=== PATIENT | female | born 1960 | race Caucasian/White ===

== ENCOUNTER 2022-11-04 14:48 | Outpatient (CLI) | payer OTHER, SELFPAY ==
[2022-11-04 22:43] LABS: Strep A DNA Probe* NOT DETECTED (Not Detectd)
== END 2022-11-04 14:49 | disposition home or self-care (01) ==
PROVIDERS: PCP Nurse Practitioner Family; Visit Provider Nurse Practitioner Family
DX: J02.9 Acute pharyngitis, unspecified (principal); J11.1 Influenza due to unidentified influenza virus with other respiratory manifestations
CPT/HCPCS: 85025; 87086; 87426; 87635; 87651

== ENCOUNTER 2023-08-22 10:56 | Outpatient (CLI) | payer OTHER, SELFPAY ==
--- OUTSIDE RECORDS SUMMARY | 2023-08-22 11:01 | XMS_ITS | Continuity of Care Document ---
Author Organization [facility] Address [address], [place] [address] Phone Care Team Providers Care Machine Setter Name Role Phone Otoniel Prasad ODe Unavailable Unavailable Advance Directives Directive Yes / No Effective Date File Name No Information Encounters Encounter Description Practice Location Reason(s) For Visit Diagnoses Date Provider Providers Copied on Encounter [facility], [address] [place] [address], [id number], [place] tel:[phone] [place] [address] No Information Osmar Marshall. [address] [place] [address], [id number], [place]. tel:[phone] Family History Family Member Type Diagnosis Age At Onset No Information Payers Payer name Insurance type Covered alliance party ID Authoriza tion(s) No Information Social History Type Description Quantity Date Captured Comments Sex Female Smoking Status No Information Chief Complaint And Reason For Visit No Information Reason For Referral Reason For Referral No Information History Of Present Illness Encounter Date Complaint History Of Prese nt Illness No Information Functional Status Date Functional Assessmen t No Information Instructions Date Instruction Additional Infor mation No Information Assessments Type Assessment Date No Information Patient Care Teams Name Effective Dates (start - stop) Status Members No Information
--- OUTSIDE RECORDS SUMMARY | 2023-08-22 11:01 | XMS_ITS | Clinical Summary ---
Author Organization [facility] Address [place], [place] [address] Care Team Providers Care Flight Control Tower Operator Name Role Phone Amy Watters NP Primary Care Provider [phone] Allergies Active Allergy Reactions Criticality Noted Date Comments Codeine Nausea Only 12/19/2015 Medications Medication Sig Dispensed Refills Start Date End Date Status ibuprofen (ADVIL; MOTRIN) 200 mg tablet Take 400 mg by mouth every 6 hours if needed for Pain. Active MULTIVITAMIN ORAL Take 1 tablet by mouth once daily. Active VIT C/VIT E/LUTEIN/MIN/OMEGA-3 (OCUVITE ORAL) Take 1 tablet by mouth once daily. (takes Herbalife product for eyes) Active CELLULOSE ORAL Take 1 capsule by mouth once daily. (takes Herbalife product) Active DOCOSAHEXANOIC ACID/EPA (FISH OIL ORAL) Take 1 capsule by mouth once daily. (takes Herbalife product) Active KRILL OIL ORAL Take 1 capsule by mouth once daily. (Herbalife product) Active Patients Unique Medication From Home Herbalife Joint Supplement Take 1 tablet by mouth daily or as directed. Active Patients Unique Medication From Home Herbalife Immunogen Take 1 tablet by mouth daily. Active Patients Unique Medication From Home Herbalife Cell Activator Take 1 tablet by mouth daily or as directed. Active Active Problems Problem Noted Date Diagnosed Date Dehydration 01/18/2015 Viral syndrome 01/17/2015 Pre-syncope 01/17/2015 Immunizations Name Administration Dates Next Due Hepatitis B (Adult) 07/26/1998,04/24/1998,1998 Td (Age >=7 Years) 07/25/2002 Family History Medical History Relation Name Comments Heart Disease Father pacer due to h eart problems from lymes Stroke Maternal Grandfather Aneurys m Hypertension Maternal Grandmother Cancer-breast Mother age 61 Cancer-colon Mother age 53 Heart Disease Mother [place] Hyperlipidemia Mother Hypertension Mother Relation Name Status Comments Father Maternal Grandfather Maternal Grandmother Mother Social History Tobacco Use Types Packs/Day Years Used Date Smoking Tobacco: Never Tobacco Cessation:Counseling Given: Yes Alcohol Use Standard Drinks/Week Comments No 0 (1 standard drink = 0.6 oz pur e alcohol) Sex and Gender Information Value Date Recorded Sex Assigned at Not on file Gender Identity Not on file Sexual Orientation Not on file Obstetrics History Last Filed Vital Signs Vital Sign Reading Time Taken Comments Blood Pressure 106/56 12/20/2015 7:51 PM CDT Pulse 98 12/20/2015 7:51 PM CDT Temperature 36.3 ??C (97.4 ??F) 12/20/2015 7:51 PM CD T Respiratory Rate 18 01/18/2015 7:51 AM MOUNTER AUTOMATIC Oxygen Saturation 100% 12/20/2015 7:51 PM CDT Inhaled Oxygen Concentration - - Weight 71.7 kg (158 lb) 12/20/2015 7:51 PM CDT Height 167.6 cm (5' 6) 01/17/2015 2:10 AM MOUNTER AUTOMATIC Body Mass Index 25.5 01/17/2015 2:10 AM MOUNTER AUTOMATIC Plan of Treatment Health Maintenance Due Date Last Done Comments Tdap 1970 Depression screening for age 12+ 1971 HIV for age 15-65 1974 BMI (ht and wt on same day) for age 18+ 1977 Hepatitis C screening for ag e 18-79 1977 Colonoscopy through age 75 02/09/2004 Lipids for age 45-75 02/09/2004 Zoster (shingles) series for age 50+ (1 of 2) 2009 Mammogram for age 45-75 06/28/2009 06/28/2008 Pap test for age 21-65 06/29/2011 9, 10/11/2003, 10/03/2003 Tetanus booster 07/25/2012 07/25/2002 COVID-19 vaccine series (2022-24 season) 2022 Influenza for age 50-64 10/26/2023 Pneumococcal series for age 6-64 Aged Out No longer eligible b ased on patient's age to complete this topic Procedures Procedure Name Priority Date/Time Associated Diagnosis Comments XR MAMMO SCREENING BILATERAL (IA) Routine 06/28/2008 7:28 PM CDT Other Screening Mammogram SENIOR MANUFACTURING ENGINEER THIN PREP PAP SCREEN IMAGED Routine 06/28/2008 3:20 PM CDT Screening for Malignant Neoplasm of the Cervix from Last 3 Months or Most Recently Relevant to Health Maintenance Results * XR MAMMO SCREENING BILATERAL * (06/28/2008 7:28 PM CDT) MAMMOGRAM ACR 1 Negative Anatomical Region Laterality Modality BREASTS, Breast Left, Breast Right Bilateral Mammography 06/28/2008 7:28 PM CDT Narrative 07/01/2008 10:01 AM CDT Negative mammogram. ??For complete description of the mammographic examination, please reference scanned document within Foneshow. ?? We are mailing a results letter to the patient. ACR 1 Negative Procedure Note Jaylen Sullivan, - 07/01/2008 Negative mammogram. For complete description of the mammographicexamination, please reference scanned document within Foneshow. We are mailing a results letter to the patient. ACR 1 Negative Amy Villasenorue INTERIOR DESIGN DIRECTOR MAMMO * SENIOR MANUFACTURING ENGINEER THIN PREP PAP SCREEN IMAGED (06/28/2008 3:20 PM CDT) CYTOLOGY ??CYTOPATHOLOGY REPORT ??[facility] ?? Status: Final Report ? [id number] ?? CLINICAL INFORMATION ?Date of Last LMP ?: April 2008 ?Last Pap Date ? : 10-11-03 ?Last Pap Result ? : NIL ?ABN Arona/Bx Past 5 YRS: None ?Hormone Usage ? : BCP/OCP/Patch/Ring ?Menstrual Status ?: Regular Periods ?Arona/Bx done today ?: No ?Additional Data ? : None given ?? HPV Request ?: HPV if ASCUS ?? SPECIMEN SOURCE ?: Cervical/vaginal ThinPrep Vial, screening ?? SPECIMEN ADEQUACY ?: Satisfactory for evaluation Endocervical ?component present. ? INTERPRETATION/RES ULT: ?Negative for intraepithelial lesion or malignancy (NIL) ? Cytology 1st Screener : ??djs ?? Signed by: ? djs ?? This specimen was screened by the FDA approved ThinPrep Imaging ?? System and manually reviewed. ?? NOTE: The Pap test is a screening technique, not a diagnostic ?? procedure. It is used primarily to screen for squamous cancers and ?? precursor lesions. Published studies have shown that it is subject to ?? both false negative and false positive results. The pap test should ?? not be used as the sole means to diagnose or exclude pre-malignant and ?? malignant lesions. ?? COLLECTED: 06/28/08 ?? ACCESSIONED: 06/28/08 ?? SIGNED: 07/04/08 [facility] PAP [place] CODE NIL [facility] Cervical/Vaginal (Cervical/Vagina l) 06/28/2008 3:20 PM CDT 06/28/2008 3:17 PM CDT Amy Watters NP PATHOLOGY/CYTOLOGY [facility] [place]NAL ZIP [id number] [address] from Last 3 Months or Most Recently Relevant to Health Maintenance Advance Directives Documents on File Type Date Recorded Patient Logging Supervisor Expl anation Healthcare Directive 07/01/2018 12:00 AM 07/01/18 * Full Code (Latest Code Status on File) Date Activated Date Inactivated Comments 01/17/2015 2:00 AM 01/18/2015 11:36 AM Question Answer Comments Code Status Discussion: Discussed Care Teams Flight Control Tower Operator Relationship Specialty Start Date End Date Amy Watters NP PCP - General Family Practice 06/11/13
== END 2023-08-22 10:57 | disposition home or self-care (01) ==
PROVIDERS: PCP Nurse Practitioner Family; Visit Provider Nurse Practitioner Family
DX: Z00.00 Encounter for general adult medical examination without abnormal findings (principal); R10.9 Unspecified abdominal pain; Z13.6 Encounter for screening for cardiovascular disorders; Z13.1 Encounter for screening for diabetes mellitus
CPT/HCPCS: 80053; 80061; 85025

== ENCOUNTER 2023-08-26 16:32 | Outpatient (CLI) | payer OTHER, SELFPAY ==
--- OUTSIDE RECORDS SUMMARY | 2023-08-26 16:35 | XMS_ITS | Clinical Summary ---
Author Organization [facility] Address [place], [place] [address] Care Team Providers Care Pigment Weigher Name Role Phone Amy Watters NP Primary Care Provider [phone] Allergies Active Allergy Reactions Criticality Noted Date [...] Dehydration 01/18/2015 Viral syndrome 01/17/2015 Pre-syncope 01/17/2015 Encounters Date Type Department Care Team Description 08/22/2023 Lab Requisition [facility] [phone] Suha Sosa DIRECTOR EXPERIMENTAL MEDICINE from Last 3 Months Immunizations Name Administration Dates Next Due Hepatitis B (Adult) 07/26/1998,04/24/1998,1998 Td (Age >=7 Years) 07/25/2002 Family History Medical History Relation Name Comments Heart Disease Father pacer due to h eart problems from lymes Stroke Maternal Grandfather Aneurys m Hypertension Maternal Grandmother Cancer-breast Mother age 61 Cancer-colon Mother age 53 Heart Disease Mother [place] Hyperlipidemia Mother Hypertension Mother Relation Name Status [...] T Respiratory Rate 18 01/18/2015 7:51 AM MINERALOGY PROFESSOR Oxygen Saturation 100% 12/20/2015 7:51 PM CDT Inhaled Oxygen Concentration - - Weight 71.7 kg (158 lb) 12/20/2015 7:51 PM CDT Height 167.6 cm (5' 6) 01/17/2015 2:10 AM MINERALOGY PROFESSOR Body Mass Index 25.5 01/17/2015 2:10 AM MINERALOGY PROFESSOR Plan of Treatment Health Maintenance Due Date Last Done Comments Tdap 1970 Depression screening for age 12+ 1971 HIV for age 15-65 1974 BMI (ht and wt on same day) for age 18+ 1977 Hepatitis C screening for age 18-79 1977 Colonoscopy through age 75 02/09/2004 Lipids for age 45-75 02/09/2004 Zoster (shingles) series for age 50+ (1 of 2) 2009 Mammogram for age 45-75 06/28/2009 06/28/2008 Pap test for age 21-65 06/29/2011 4, 06/28/2008, 10/11/2003, Additional history exists Tetanus booster 07/25/2012 07/25/2002 COVID-19 vaccine series (2022-24 season) 2022 Influenza for age 50-64 10/26/2023 Pneumococcal series for age 6-64 Aged Out No longer eligible based on patient's age to complete this topic Procedures Procedure Name Priority Date/Time Associated Diagnosis Comments LAB TRACKING EVENT Routine 08/22/2023 11 :15 AM CDT HPV THIN PREP Routine 08/22/2023 11:15 AM CDT XR MAMMO SCREENING BILATERAL (IA) Routine 06/28/2008 7:28 PM CDT Other Screening Mammogram from Last 3 Months or Most Recently Relevant to Health Maintenance Results * LAB TRACKING EVENT (08/22/2023 11:15 AM CDT) Other (Other) Client Collect / Unknown 08/22/2023 11:15 AM CDT 08/22/2023 10:04 PM CDT Suha Sosa NP LAB BILL ONLY Performing Organization Address [facility] Co de Phone Number [facility] [address] * HPV HIGH RISK (08/22/2023 11:15 AM CDT) TYPE 16 Negative Negative 08/26/2023 2:27 PM CDT [facility] TYPE 18 Negative Negative 08/26/2023 2:27 PM CDT [facility] OTHER HIGH RISK TYPES Negative Negative 08/26/2023 2:27 PM CDT [facility] Other (Cervical) 08/22/2023 11:15 AM CDT 08/25/2023 2:45 PM CDT Narrative [facility] - 08/26/2023 2:27 PM CDT HPV types 16, 18, 31, 33, 35, 39, 45, 51, 52, 56, 58, 59, 66 and 68 DNA were undetectable or below the pre-set threshold. Methodology: Shadow Puppet Gerber 4800 HPV Test Suha Sosa NP MICROBIOLOGY Performing Organization Address [facility] Co de Phone Number [facility] [address] [place] [address], * XR MAMMO SCREENING BILATERAL * (06/28/2008 7:28 PM CDT) MAMMOGRAM ACR 1 Negative Anatomical Region Laterality Modality BREASTS, Breast Left, Breast Right Bilateral Mammography 06/28/2008 7:28 PM CDT Narrative 07/01/2008 10:01 AM CDT Negative mammogram. ??For complete description of the mammographic examination, please reference scanned document within [employer]ze. ?? We are mailing a results letter to the patient. ACR 1 Negative Procedure Note Jaylen Sullivan, - 07/01/2008 Negative mammogram. For complete description of the mammographicexamination, please reference scanned document within Graze. We are mailing a results letter to the patient. ACR 1 Negative Amyanton Villasenorue DIRECTOR EXPERIMENTAL MEDICINE MAMMO from Last 3 Months or Most Recently Relevant to Health Maintenance Advance Directives Documents on File Type Date Recorded Patient Bid Analyst Expl anation Healthcare Directive 07/01/2018 12:00 AM 07/01/18 * Full Code (Latest Code Status on File) Date Activated Date Inactivated Comments 01/17/2015 2:00 AM 01/18/2015 11:36 AM Question Answer Comments Code Status Discussion: Discussed Care Teams Pigment Weigher Relationship Specialty Start Date End Date Amy Watters NP PCP - General Family Practice 06/11/13
--- OUTSIDE RECORDS SUMMARY | 2023-08-26 16:35 | XMS_ITS | Continuity of Care Document ---
Author Organization [facility] Address [address], [place] [address] Phone Care Team Providers Care Manual Lathe Machinist Name Role Phone Otoniel Prasad ODe Unavailable Unavailable Advance Directives Directive Yes / No Effective Date File Name No Information Encounters Encounter Description Practice Location Reason(s) For Visit Diagnoses Date Provider Providers Copied on Encounter [facility], [address] [place] [address], [id number], [place] tel:[phone] [place] [address] No Information Osmar Marshall. [address] [place] [address], [id number], [place]. tel:[phone] Family History Family Member Type Diagnosis Age At Onset No Information Payers Payer name Insurance type Covered constitution party ID Authoriza tion(s) No Information Social [...]
--- NOTE | 2023-08-26 16:45 | CRLHL7_ITS ---
For Patients: As a result of the Century Cures Act, medical imaging exams and procedure reports are released immediately into your electronic medical record. You may view this report before your referring provider. If you have questions, please contact your health care provider. INDICATION: Left lower quadrant abdominal pain. TECHNIQUE: Noncontrast CT images of the abdomen and pelvis. COMPARISON: None. FINDINGS: Small nodules in the lower lobe of the left lung measuring up to 4 mm, nonspecific. No pleural effusion. The heart size is normal. Small hypoattenuating lesion in the right hepatic lobe, incompletely characterized though may represent a cyst. The gallbladder is unremarkable. The spleen is unremarkable. The pancreas is unremarkable. The adrenal glands are unremarkable. Probable small left parapelvic cysts. No radiopaque renal calculi. The stomach is mildly distended. No abnormally dilated loops of bowel. The appendix is unremarkable. Colonic diverticulosis. No free fluid or free air. No pathologically enlarged lymph nodes. The abdominal aorta is normal in caliber. Small to moderate fat containing left inguinal hernia. The urinary bladder is underdistended. The uterus is anteverted. Multilevel lumbar spondylosis. No aggressive osseous lesions. IMPRESSION: 1. No acute abnormality in the abdomen or pelvis. 2. Colonic diverticulosis. 3. Small to moderate fat containing left inguinal hernia. Please note that all CT scans at this facility use dose modulation, iterative reconstruction, and/or weight-based dosing when appropriate to reduce radiation dose to as low as reasonably achievable. Dictated by Checo Rider MD @ 08/28/2023 6:57:31 PM (Electronically Signed)
== END 2023-08-26 16:33 | disposition home or self-care (01) ==
LOC: CT 16:34
PROVIDERS: PCP Nurse Practitioner Family; Visit Provider Nurse Practitioner Family
DX: R10.32 Left lower quadrant pain (principal); K40.90 Unilateral inguinal hernia, without obstruction or gangrene, not specified as recurrent; K57.30 Diverticulosis of large intestine without perforation or abscess without bleeding
CPT/HCPCS: 74176

== ENCOUNTER 2023-09-15 09:37 | Outpatient (CLI) | payer OTHER, SELFPAY ==
--- OUTSIDE RECORDS SUMMARY | 2023-09-15 09:39 | XMS_ITS | Continuity of Care Document ---
Author Organization [facility] Address [address] [address] Phone Care Team Providers Care Crate Tier Name Role Phone Otoniel Prasad ODe Unavailable Unavailable Advance Directives Directive Yes / No Effective Date File Name No Information Encounters Encounter Description Practice Location Reason(s) For Visit Diagnoses Date Provider Providers Copied on Encounter [facility], [address] [place] [address], [id number], [place] tel:[phone] [place] [address] No Information Osmar Marshall. [address] [place] [address], [id number], [place]. tel:[phone] Family History Family Member Type Diagnosis Age [...]
--- OUTSIDE RECORDS SUMMARY | 2023-09-15 09:39 | XMS_ITS | Clinical Summary ---
Author Organization [facility] Address [place], [place] [address] Care Team Providers Care Emt Dispatcher Name Role Phone Amy Watters NP Primary Care Provider [phone] Allergies Active Allergy Reactions Criticality Noted Date [...] Department Care Team Description 08/22/[address] [facility] [phone] Suha Sosa DINING ROOM ATTENDANT CAFETERIA from Last 3 Months Immunizations Name Administration Dates Next Due Hepatitis B (Adult) 07/26/1998,04/24/1998,1998 Td (Age >=7 Years) 07/25/2002 Family History Medical History Relation Name Comments Heart Disease Father pacer due to h eart problems from lymes Stroke Maternal Grandfather Aneurys m Hypertension Maternal Grandmother Cancer-breast Mother age 61 Cancer-colon Mother age 53 Heart Disease Mother [place] Hyperlipidemia Mother Hypertension Mother Relation Name Status [...] T Respiratory Rate 18 01/18/2015 7:51 AM PROJECT TECHNICIAN Oxygen Saturation 100% 12/20/2015 7:51 PM CDT Inhaled Oxygen Concentration - - Weight 71.7 kg (158 lb) 12/20/2015 7:51 PM CDT Height 167.6 cm (5' 6) 01/17/2015 2:10 AM PROJECT TECHNICIAN Body Mass Index 25.5 01/17/2015 2:10 AM PROJECT TECHNICIAN Plan of Treatment Health Maintenance Due Date [...] 2009 Mammogram for age 45-75 06/28/2009 06/28/2008 Tetanus booster 07/25/2012 07/25/2002 COVID-19 vaccine series (2022- season) 2022 Influenza for age 50-64 10/26/2023 Pap test for age 21-65 08/21/2026 , 08/22/2023, 06/28/2008, Additional history exists Pneumococcal series for age 6-64 Aged Out No longer eligible based on patient's age to complete this topic Procedures Procedure Name Priority Date/Time Associated Diagnosis Comments LAB TRACKING EVENT Routine 08/22/2023 11 :15 AM CDT VERMIN EXTERMINATOR THIN PREP PAP SCREEN IMAGED Routine 08/22/2023 11:15 AM CDT HPV THIN PREP Routine 08/22/2023 11:15 AM CDT XR MAMMO SCREENING BILATERAL (IA) Routine 06/28/2008 7:28 PM CDT Other Screening Mammogram from Last 3 Months or Most Recently Relevant to Health Maintenance Results * LAB TRACKING EVENT (08/22/2023 11:15 AM CDT) Other (Other) Client Collect / Unknown 08/22/2023 11:15 AM CDT 08/22/2023 10:04 PM CDT Suha Sosa NP LAB BILL ONLY [facility] [address] [place] [address], * VERMIN EXTERMINATOR THIN PREP PAP SCREEN IMAGED (08/22/2023 11:15 AM CDT) Case Report Gynecologic Cytology Report ? Case: [id number] ? Authorizing Provider: ??Suha Sosa NP ?Collected: ? 08/22/2023 1115 ? Ordering Location: ? [facility] ?Received: ?08/25/2023 1445 ? First Screen: ?Siobhan Griffin ? Specimen: ?VERMIN EXTERMINATOR ThinPrep Vial Screening, Cervical ? 08/31/2023 10:57 AM CDT [facility] [email or web address] [facility] INTERPRETATION/ RESULT NEGATIVE FOR INTRAEPITHELIAL LESION OR MALIGNANCY (NIL) (none) 08/31/2023 10:57 AM T [facility] IMEN ADEQUACY Satisfactory for evaluation Endocervical cells cannot be evaluated due to severe atrophy 08/31/2023 10:57 AM CDT [facility] HPV REQUEST HPV and PAP 08/31/2023 10:57 AM CDT [email or web address] LABORATORY- ENTRAL LABORATORY Date of LMP 08/31/2023 10:57 AM CDT [facility] Comment:12yrs ago Last Pap Date 08/31/2023 10:57 AM CDT [facility] Comment:2017 Last Pap Result NIL 10:57 AM CDT [facility] Abnormal Pap or [place] Bx in last 5 years No 08/31/2023 10:57 AM CDT [facility] Menstrual Status Postmenopausal 08/31/2023 10:57 AM CDT [facility] Additional Information 08/31/2023 10:57 AM T [facility] Comment: Interpreted at [facility] [employer] [facility] Laboratory - [address], [place] [address] Automated Review Successful 08/31/2023 10:57 AM T [facility] Comment:Specimen processed s uccessfully by automated electrical wirer device, ThinPrep Imaging System, [employer] ANCILLARY TESTING VERMIN EXTERMINATOR HPV Ordered, Please see separate report 08/31/2023 10:57 AM CDT [facility] Note The pap test is a screening technique, not a diagnostic procedure. It is used primarily to screen for squamous cancers and precursor lesions. Published studies have shown that it is subject to both false negative and false positive results. The pap test should not be used as the sole means to diagnose or exclude pre-malignant and malignant lesions. 08/31/2023 10:57 AM CDT [facility] Other (Cervical) 08/22/2023 11:15 AM CDT 08/25/2023 2:45 PM CDT Suha Sosa NP PATHOLOGY/CYTOLOGY Performing Organization Address [facility] de Phone Number [facility] [address] [place] [address], * HPV HIGH RISK (08/22/2023 11:15 AM CDT) TYPE 16 Negative Negative 08/26/2023 2:27 PM CDT [facility] TYPE 18 Negative Negative 08/26/2023 2:27 PM CDT [facility] OTHER HIGH RISK TYPES Negative Negative 08/26/2023 2:27 PM CDT [facility] Other (Cervical) 08/22/2023 11:15 AM CDT 08/25/2023 2:45 PM CDT Narrative [facility] - 08/26/2023 2:27 PM CDT HPV types 16, 18, 31, 33, 35, 39, 45, 51, 52, 56, 58, 59, 66 and 68 DNA were undetectable or below the pre-set threshold. Methodology: Jayy Gerber 4800 HPV Test Suha Sosa NP MICROBIOLOGY Performing Organization Address [facility] Co de Phone Number [facility] [address] [place] [address], [place] * XR MAMMO SCREENING BILATERAL * (06/28/2008 7:28 PM CDT) MAMMOGRAM ACR 1 Negative Anatomical Region Laterality Modality BREASTS, Breast Left, Breast Right Bilateral Mammography 06/28/2008 7:28 PM CDT Narrative 07/01/2008 10:01 AM CDT Negative mammogram. ??For complete description of the mammographic examination, please reference scanned document within [employer]. ?? We are mailing a results letter to the patient. ACR 1 Negative Procedure Note Jaylen Sullivan, DO - 07/01/2008 Negative mammogram. For complete description of the mammographicexamination, please reference scanned document within [employer]. We are mailing a results letter to the patient. ACR 1 Negative Amy Watters NP MAMMO from Last 3 Months or Most Recently Relevant to Health Maintenance Advance Directives Documents on File Type Date Recorded Patient Dip Tube Assembler Machine Expl anation Healthcare Directive 07/01/2018 12:00 AM 07/01/18 * Full Code (Latest Code Status on File) Date Activated Date Inactivated Comments 01/17/2015 2:00 AM 01/18/2015 11:36 AM Question Answer Comments Code Status Discussion: Discussed Care Teams Emt Dispatcher Relationship Specialty Start Date End Date Amy Watters NP PCP - General Family Practice 06/11/13
--- NOTE | 2023-09-15 10:51 | W.ANESCHARGE ---
Anesthesia Charges Start Date/Time Anesthesia Start Date: 09/15/23 Anesthesia Start Time: 10:18 Stop Date/Time Anesthesia Stop Date: 09/15/23 Anesthesia Stop Time: 10:47
--- NOTE | 2023-09-15 11:03 | W.ANESCHARGE ---
Anesthesia Charges Start Date/Time Anesthesia Start Date: 09/15/23 Anesthesia Start Time: 10:18 Stop Date/Time Anesthesia Stop Date: 09/15/23 Anesthesia Stop Time: 10:47
== END 2023-09-15 09:38 | disposition home or self-care (01) ==
LOC: OP CLINIC 09:38
PROVIDERS: PCP Nurse Practitioner Family; Visit Provider Internal Medicine
DX: Z12.11 Encounter for screening for malignant neoplasm of colon (principal); K63.5 Polyp of colon; K57.30 Diverticulosis of large intestine without perforation or abscess without bleeding; Z80.0 Family history of malignant neoplasm of digestive organs
CPT/HCPCS: 00811; 45380; 88305; J2704

== ENCOUNTER 2023-11-04 18:49 | Outpatient (CLI) | payer OTHER, SELFPAY ==
--- OUTSIDE RECORDS SUMMARY | 2023-11-04 18:52 | XMS_ITS | Clinical Summary ---
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 from Last 3 Months Immunizations Name Administration Dates Next Due Hepatitis B (Adult) 07/26/1998,04/24/1998,1998 Td (Age >=7 Years) 07/25/2002 Family History Medical History Relation Name Comments Heart Disease Father pacer due to h eart problems from lymes Stroke Maternal Grandfather Aneurys m Hypertension Maternal Grandmother Cancer-breast Mother age 61 Cancer-colon Mother age 53 Heart Disease Mother ID Hyperlipidemia Mother Hypertension Mother Relation Name Status [...] T Respiratory Rate 18 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 Oxygen Saturation 100% 12/20/2015 7:51 PM CDT Inhaled Oxygen Concentration - - Weight 71.7 kg (158 lb) 12/20/2015 7:51 PM CDT Height 167.6 cm (5' 6) 01/17/2015 2: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 Body Mass Index 25.5 01/17/2015 2: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 Plan of Treatment Health Maintenance Due Date [...] 07/25/2012 07/25/2002 COVID-19 vaccine series (2022- season) 2023 Influenza for age 50-64 10/26/2023 Pap test for age 21-65 08/21/2026 , 08/22/2023, 06/28/2008, Additional history exists Pneumococcal series for age 6-64 Aged Out No longer eligible based on patient's age to complete this topic Procedures Procedure Name Priority Date/Time Associated Diagnosis Comments LAB TRACKING EVENT Routine 09/15/2023 10 :40 AM CDT PATH TISSUE EXAM Routine 09/15/2023 10:4 0 AM CDT LAB TRACKING EVENT Routine 08/22/2023 11 :15 AM CDT WOOL SHEARER THIN PREP PAP SCREEN IMAGED Routine 08/22/2023 11:15 AM CDT HPV THIN PREP Routine 08/22/2023 11:15 AM CDT XR MAMMO SCREENING BILATERAL (IA) Routine 06/28/2008 7:28 PM CDT Other Screening Mammogram from Last 3 Months or Most Recently Relevant to Health Maintenance Results * LAB TRACKING EVENT (09/15/2023 10:40 AM CDT) Only the most recent of2 resultswithin the time period is included. Other (Other) Client Collect / Unknown 09/15/2023 10:40 AM CDT 09/15/2023 9:55 PM CDT Jacob Craig MD LAB BILL ONLY Performing Organization Address City/State/[facility] Co de Phone Number [facility]AL LABORAT[facility] [address] [place] [address], * PATH TISSUE EXAM (09/15/2023 10:40 AM CDT) Case Report Pathology Report ?Case: [id number] ? Authorizing Provider: ??Jacob Craig MD ?Collected: ? 09/15/2023 1040 ? Ordering Location: ? [facility] ?Received: ?09/16/2023 0949 ? Pathologist: ? Shannan Thakkar MD ? Specimens: ?? A) - Transverse Colon Biopsy ? B) - Sigmoid Biopsy ? 09/17/2023 2:29 PM CDT Ready [facility] Travel LABORATORY-C ENTRAL LABORATORY Final Diagnosis A) COLON, TRANSVERSE, POLYPECTOMY: 1. Tubular adenoma 2. Negative for high grade dysplasia 3. Per the colonoscopy report: ?? a. Polyp size: 2 mm ?? b. Resection: Complete ?? c. Retrieval: Complete B) COLON, SIGMOID, POLYPECTOMY: 1. Hyperplastic polyp 09/17/2023 2:29 PM CDT Ready [facility] LABORATORY-C ENTRAL LABORATORY Clinical Information Colonoscopy with polypectomies. 09/17/2023 2:29 PM CDT [facility] LABORATORY-C ENTRAL LABORATORY Gross Description A) Received in formalin is a camacho mucosal fragment measuring 6 mm in greatest dimension, which is entirely submitted in one cassette. It is labeled with the patient's name and designated colon-transver se, polyp. B) Received in formalin is a camacho mucosal fragment measuring 3 mm in greatest dimension, which is entirely submitted in one cassette. It is labeled with the patient's name and designated colon-sigmoid, polyp. Leora Masters 09/16/2023 11:08 AM 09/17/2023 2:29 PM CDT [facility] EN[facility]AL LABORATORY Microscopic Description The final diagnosis is based on microscopic examination of appropriate sections of all specimens. 09/17/2023 2:29 PM CDT [facility]-C ENTRAL LABORATORY Additional Information Interpreted at [facility], Central Laboratory - [address] [facility] [address] [address] 09/17/2023 2:29 PM CDT [facility] Other (Transverse Colon Biopsy) 09/15/2023 10:40 AM CDT 09/16/2023 9:49 AM CDT Specimen (specimen) (Sigmoid Biopsy) 09/15/2023 10:40 AM CDT 09/16/2023 9:49 AM CDT Jacob Craig MD PATHOLOGY/CYTOLOGY Performing Organization Address City/State/[facility] Co de Phone Number [facility]-CENTRAL LABORATORY [address] [place] [address], * WOOL SHEARER THIN PREP PAP SCREEN IMAGED (08/22/2023 11:15 AM CDT) Case Report Gynecologic Cytology Report ? Case: [id number] ? Authorizing Provider: ??Suha Sosa NP ?Collected: ? 08/22/2023 1115 ? Ordering Location: ? [facility] CENTRAL LAB ?Received: ?08/25/2023 1445 ? First Screen: ?Siobhan Griffin ? Specimen: ?WOOL SHEARER ThinPrep Vial Screening, Cervical ? 08/31/2023 10:57 AM CDT [facility]- ENTRAL LABORATORY INTERPRETATION/ RESULT NEGATIVE FOR INTRAEPITHELIAL LESION OR MALIGNANCY (NIL) (none) 08/31/2023 10:57 AM CDT [facility] IMEN ADEQUACY Satisfactory for evaluation Endocervical cells cannot be evaluated due to severe atrophy 08/31/2023 10:57 AM CDT [facility] LABORATORY- ENTRAL LABORATORY HPV REQUEST HPV and PAP 08/31/2023 10:57 AM CDT [facility] LABORATORY-C ENTRAL LABORATORY Date of LMP 08/31/2023 10:57 AM CDT [facility]- ENTRAL LABORATORY Comment:12yrs ago Last Pap Date 08/31/2023 10:57 AM CDT [facility] Comment:2017 Last Pap Result NIL 10:57 AM CDT [facility] Abnormal Pap or [place] Bx in last 5 years No 08/31/2023 10:57 AM CDT [facility]- ENTRAL LABORATORY Menstrual Status Postmenopausal 08/31/2023 10:57 AM CDT [facility] Additional Information 08/31/2023 10:57 AM CDT [facility] Comment: Interpreted at [facility] [employer] [facility], Central Laboratory - [address], [place] [address] Automated Review Successful 08/31/2023 10:57 AM CDT [facility] EN[facility] Comment:Specimen processed s uccessfully by automated business analysis analyst device, ThinPrep Imaging System, [facility] ANCILLARY TESTING WOOL SHEARER HPV Ordered, Please see separate report 08/31/2023 10:57 AM CDT [facility] Note The pap test is a [...] and malignant lesions. 08/31/2023 10:57 AM CDT [facility] Other (Cervical) 08/22/2023 11:15 AM CDT 08/25/2023 2:45 PM CDT Suha Sosa NP PATHOLOGY/CYTOLOGY Performing Organization Address [facility] Co de Phone Number [facility] [address] [place] [address] * HPV HIGH RISK (08/22/2023 11:15 AM CDT) TYPE 16 Negative Negative 08/26/2023 2:27 PM CDT [facility] TRAL LABORATORY TYPE 18 Negative Negative 08/26/2023 2:27 PM CDT [facility] TR[facility] LAB[facility] OTHER HIGH RISK TYPES Negative Negative 08/26/2023 2:27 PM CDT [facility] Other (Cervical) 08/22/2023 11:15 AM CDT 08/25/2023 2:45 PM CDT Narrative [facility] - 08/26/2023 2:27 PM CDT HPV types 16, 18, 31, 33, 35, 39, 45, 51, 52, 56, 58, 59, 66 and 68 DNA were undetectable or below the pre-set threshold. Methodology: Jayy Gerber 4800 HPV Test Suha Sosa NP MICROBIOLOGY Performing Organization Address [facility] Co de Phone Number [facility] [address] [address] * XR MAMMO SCREENING BILATERAL * (06/28/2008 7:28 PM CDT) MAMMOGRAM ACR 1 Negative Anatomical Region Laterality Modality BREASTS, Breast Left, Breast Right Bilateral Mammography 06/28/2008 7:28 PM CDT Narrative 07/01/2008 10:01 AM CDT Negative mammogram. ??For complete description of the mammographic examination, please reference scanned document within [employer]. ?? We are mailing a results letter to the patient. ACR 1 Negative Procedure Note Jaylen Sullivan, - 07/01/2008 Negative mammogram. For complete description of the mammographicexamination, please reference scanned document within [employer]. We are mailing a results letter to the patient. 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
--- NOTE | 2023-11-04 19:00 | CRLHL7_ITS ---
For Patients: As a result of the Century Cures Act, medical imaging exams and procedure reports are released immediately into your electronic medical record. You may view this report before your referring provider. If you have questions, please contact your health care provider. BILATERAL SCREENING MAMMOGRAM WITH COMPUTER-AIDED DETECTION AND TOMOSYNTHESIS TECHNIQUE: CC and MLO views were obtained. These mammographic images have been obtained using full-field digital technique. These mammographic images were interpreted with the benefit of computer-aided detection. Breast Tomosynthesis was used in this interpretation. COMPARISON FILM: 08/28/17, 08/19/17. FINDINGS: The breasts are heterogeneously dense, which may obscure small masses. IMPRESSION: There is no radiographic evidence for malignancy. ASSESSMENT: BI-RADS Category 2: Benign RECOMMENDATION: Routine screening mammogram in 1 year. A lay language report of this examination will be provided to the patient. Ian Murphy M.D. Diagnostic Radiologist [employer] [facility] [email or web address] SP/Dictated by: Ian Murphy MD @ 11/06/2023 8:19:00 AM (Electronically Signed)
== END 2023-11-04 18:50 | disposition home or self-care (01) ==
LOC: MAMMO 18:50
PROVIDERS: PCP Nurse Practitioner Family; Visit Provider Nurse Practitioner Family
DX: Z12.31 Encounter for screening mammogram for malignant neoplasm of breast (principal); R92.2 Inconclusive mammogram
CPT/HCPCS: 77063; 77067